=== PATIENT | female | born 1955 | race Caucasian/White ===

== ENCOUNTER → 2017-01-04 | Outpatient (CLI) | payer BC ==
[~2017-01-04] MED LIST: CARAFATE1 GM PO; CO Q-10100 MG PO; CYMBALTA30 MG PO; DELTASONE5 MG PO; FOSAMAX70 MG PO; K-TAB ER20 MEQ PO; METHOTREXATE2.5 MG PO; NEURONTIN300 MG PO; NORCO 5-325 MG1 TAB PO; PLAQUENIL200 M1 PO; PRILOSEC20 MG PO; SKELAXIN800 MG PO; TOPROL XL 5050 MG PO; ZOVIRAX800 MG PO
== END | disposition disaster alternative care site (69) ==
LOC: GRAD 09:07
DX: R10.9 Unspecified abdominal pain (principal); R18.8 Other ascites; Z85.038 Personal history of other malignant neoplasm of large intestine; Z90.49 Acquired absence of other specified parts of digestive tract
CPT/HCPCS: Q9967

== ENCOUNTER → 2017-01-05 | Outpatient (CLI) | payer BC ==
[2017-01-05 14:52] LABS: PERITONEAL FLUID TURBIDITY 1+ (CLEAR)
[2017-01-05 15:49] LABS: % PERITONEAL FLUID MONO/MACRO 43 % (0-0); % PERITONEAL FLUID NEUT 25 % (0-25)
== END ==
LOC: GOPD 01-04 15:30
PROVIDERS: Surgery
DX: R18.8 Other ascites (principal); Z86.012 Personal history of benign carcinoid tumor; I10 Essential (primary) hypertension; R06.02 Shortness of breath; C18.1 Malignant neoplasm of appendix

== ENCOUNTER → 2017-01-19 | Outpatient (CLI) | payer BC | END | disposition disaster alternative care site (69) | LOC: GRAD 13:04 | PROC: 0W9G3ZX Drainage of Peritoneal Cavity, Percutaneous Approach, Diagnostic (ICD-10-PCS; principal; 2017-01-19) | PROC: BW40ZZZ Ultrasonography of Abdomen (ICD-10-PCS; 2017-01-19) | DX: R18.8 Other ascites (principal) ==